=== PATIENT | male | born 1940 | race Caucasian/White ===

== ENCOUNTER 2018-07-13 10:54 | Inpatient (IN) | payer OTHER ==
[~2018-07-13] VITALS: Ht 188 cm; Wt 93.5 kg
--- NOTE | 2018-07-13 11:25 | NUR ---
PATIENT PRESENTS TO ED WITH C/O HEART PALPITATIONS AND DIZZINESS SINCE YESTERDAY AFTERNOON. STS HE TOOK SOME NICOTINE PRODUCT YESTERDAY AFTERNOON AND STARTED FEELING SYMPTOMS. STS HE WAS UNABLE TO TAKE BEYOND 10 STEPS BEFORE HE STARTED FEELING DIZZY. STS THAT HE WAS HAVING SOB. EARLIER YESTERDAY WELL. AWAITING MSE.
--- NOTE | 2018-07-13 11:44 | NUR ---
XRAY AT BEDSIDE
[2018-07-13 11:58] LABS: PLATELET COUNT 311 x10^3mcL (130-400)
[2018-07-13 12:06] LABS: RED CELL DISTRIBUTION WIDTH 18.2 % (11.5-14.5)
--- NOTE | 2018-07-13 12:09 | NUR ---
PROVIDED PATIENT WITH URINAL, PATIENT STS UNABLE TO URINATE AT THE MOMENT BUT WILL TRY AT A LATER TIME
[2018-07-13 12:13] LABS: CALCIUM 8.7 mg/dL (8.5-10.1); CARBON DIOXIDE 26.3 mmol/L (21-32); CHLORIDE SERUM 103 mmol/L (98-107); CREATININE SERUM 1.1 mg/dL (0.7-1.3); GLUCOSE SERUM 121 mg/dL (74-106); POTASSIUM SERUM 4.4 mmol/L (3.5-5.1); SODIUM SERUM 137 mmol/L (136-145)
[2018-07-13 12:19] LABS: ALKALINE PHOSPHATASE 59 U/L (46-116); ALT/SGPT 15 U/L (16-63); AST/SGOT 15 U/L (15-37); BILIRUBIN TOTAL 0.35 mg/dL (0.20-1.00)
[2018-07-13 12:20] LABS: ALBUMIN 3.1 g/dL (3.4-5.0)
[2018-07-13 12:28] LABS: FREE T4 0.93 ng/dL (0.76-1.46); FREE THYROXINE INDEX 2.1 ug/dL (1.4-4.5); T4(THYROXINE) 5.8 ug/dL (4.7-13.3)
--- NOTE | 2018-07-13 12:42 | NUR ---
PT RESTING AT BEDSIDE IN NAD
[2018-07-13 12:49] LABS: BAND NEUTROPHIL 6 % (0-10); BASOPHIL 0 % (0-2); MONOCYTE 24 % (0-7); SEGMENTED NEUTROPHILS 62 % (37-75)
[2018-07-13 12:50] LABS: T3 TOTAL 0.84 ng/mL
[2018-07-13 12:51] LABS: ovalocyte/elliptocyte 1+; rbc morphology (normal/abnorm) ABNORMAL (NORMAL)
[2018-07-13 12:52] LABS: PLATELET MORPHOLOGY GIANT PLATELET SEEN; tear drop cell (dacryocyte) 1+
[2018-07-13 13:05] LABS: AMPHETAMINE QUAL UR NONE DETECTED (See below)
[2018-07-13] MEDS ORDERED: HYD500 (13:07)
[2018-07-13] MEDS ORDERED: SIMVASTATIN10 M1 (13:07)
--- NOTE | 2018-07-13 14:11 | NUR ---
REPORT OFF TO ANTONIA ARBOLEDA
--- NOTE | 2018-07-13 14:20 | NUR ---
RECEIVED PT FROM ED VIA [facility], CAME IN DUE TO DIZZINESS AND PALPITATIONS THAT STARTED YESTERDAY AFTER TAKING 2 NICOTINE GUMS. AAOX4. C/O LIGHTHEADEDNESS WHEN AMBULATING. NO SOB NOTED, LUNG SOUNDS CTA. DENIES CHEST PAIN/PRESSURE, AFIB W/ OCC. PVC'S, HR AT 109 ON THE MONITOR. DENIES ABDOMINAL DISCOMFORT. BOWEL SOUNDS ACTIVE. VOIDS. IV SITE ON THE LAC IS PATENT AND INTACT. AT BEDSIDE. SIDE RAILS UPX2. CALL LIGHT ON REACH. WILL CONT TO MONITOR
[2018-07-13 14:28] VITALS: BP 129/74
--- NOTE | 2018-07-13 15:18 | NUR ---
CARE ENDORSED TO [place] FOR CONTINUITY OF CARE
--- NOTE | 2018-07-13 15:30 | NUR ---
ASSUMED PT. CARE RECIEVED AWAKE ,ALERT AND ORIENTED.DENIES ANY PAIN,NO DIZZINESS NOTED. AT THIS TIME.CONT,. IV FLUIDS ORDERED,CALL LIGHT W/ IN REACH. NO ACUTE DISTRESS NOTED.
[2018-07-13 17:45] VITALS: BP 126/52
--- NOTE | 2018-07-13 18:00 | NUR ---
PT. EAT DINNER WELL. C/O FEELING ANXIETY ,NERVOUS ,ATIVAN GIVEN ORDERED.MADE COMFORTABLE IN BED.CALL LIGHT W/ IN REACH.PUT ON 02 AT 2 L N/C .HOB ELEVATED AT 30 DEGREE.APPEARS MORE COMFORTABLE AT THIS TIME.
--- NOTE | 2018-07-13 19:40 | NUR ---
AOX4. TELE #25, A FIB. HR 130'S. DENIES CP/PALPITATIONS AT THIS TIME. LUNGS CLEAR ON NC @ 2L. PULSES PALPABLE. NO EDEMA. BOWEL SOUNDS ACTIVE. VOIDS FREELY. AMBULATORY. SKIN INTACT. IV INFUSING TO LAC, NO REDNESS/SWELLING. DENIES ALL OTHER PAIN. BED IN LOWEST POSITION, 2 SIDE RAILS UP, CALL LIGHT IN REACH. INSTRUCTED TO CALL FOR ASSISTANCE.
[2018-07-13 20:20] VITALS: BP 126/78
--- NOTE | 2018-07-13 21:44 | NUR ---
PT REPORTED 10/10 CHEST PAIN. ON NC @ 2L. DR. ZAMBRANO NOTIFIED AND CAME TO BEDSIDE TO ASSESS. STAT EKG ORDERED. ADMINISTERED SL NITRO X 3, PER EMAR. LATEST BP 111/64. HR 145. PT REPORTS 7/10 CHEST PAIN POST NITRO ADMINISTRATION. WILL CONTINUE TO MONITOR.
--- NOTE | 2018-07-14 00:18 | NUR ---
HR WAS 120-160'S. DR. ZAMBRANO NOTIFIED. ORDERED CARDIZEM IVP. TELE MONITORED NOTIFED. HR POST CARDIZEM IVP 90-110'S. PT RESTING COMFORTABLY IN BED. CURRENT CP 07/20.
--- NOTE | 2018-07-14 03:21 | NUR ---
PT C/O SOB AND CP, INCREASED NC TO 5L. HR CURRENTLY 140'S-150'S. DR. ZAMBRANO MADE AWARE. STATED HE WILL BE AT BEDSIDE TO ASSESS PT.
--- NOTE | 2018-07-14 04:49 | NUR ---
REPORT GIVEN TO DOMINICK KNIGHT. PT TO BE TRANSFERED TO ICU BED 3.
--- NOTE | 2018-07-14 04:50 | NUR ---
PT TRANSFERRED FROM [facility] UNIT ACCOMPANIED BY 2 RNS VIA [facility]. PT ABLE TO AMBULATE TO ICU BED WITH STEADY GAIT. PT IS A/0 X4. SPEECH CLEAR AND APPROPRIATE. PT WITH C/O 10/10 MID CHEST AREA PRESSURE-LIKE PAIN. WILL MEDICATE WITH NITRO PRN. VITAL SIGNS UPON ARRIVAL: TEMP 98.4 ORAL, HR 154, RR 12, O2 SAT 97%. NO SOB NOTED, RESPS E/U ON O2 4 LPM VIA NC. CHEST RISE EQUAL AND SYMMETRICAL. PROGRAMMER NUMERICAL CONTROL IN PLACE SHOWING A FIB. CHEST WALL STABLE. ABD FLAT, SOFT, NONTENDER TO TOUCH. IV TO LAC INTACT AND PATENT, IVF NS INFUSING @ 50ML/HR. PULSES PALPABLE X4. NO EDEMA NOTED. CAP REFILL < 3 SECS. ABLE TO REPOSITION SELF. CALL LIGHT WITHIN REACH. WILL CONTINUE TO MONITOR.
--- NOTE | 2018-07-14 05:00 | NUR ---
CASSIDY BYRD STATED THAT SHE TRIED CALLING THE PATIENT'S DAUGHTER REGARDING TRANSFER BUT UNABLE TO SPEAK TO HER, HOWEVER SHE GOT HOLD OF THE PATIENT'S SPOUSE AND SHE INFORMED HER ABOUT THE TRANSFER.
--- NOTE | 2018-07-14 05:00 | NUR ---
AMIO GTT INTIATED AT THIS TIME 1 MG/MIN.
--- NOTE | 2018-07-14 05:21 | NUR ---
NITRO SL X3 GIVEN, 5 MINS APART FOR C/O CHEST PAIN 10/10. PTS PAIN LEVEL WENT DOWN TO 5/10.
--- NOTE | 2018-07-14 05:27 | NUR ---
AMIO 150 MG BOLUS GIVEN AT THIS TIME.
--- NOTE | 2018-07-14 05:40 | NUR ---
AMIO GTT INITIATED AT 1 MG/MIN.
--- NOTE | 2018-07-14 05:55 | NUR ---
PT STATES PT WENT UP TO 09/19, MEDICATED WITH MORPHINE 2MG IVP, WILL MONITOR FOR EFFECTIVENESS.
--- NOTE | 2018-07-14 06:01 | NUR ---
IV INSERTED TO RFA G20 WITH GOOD BLOOD RETURN. FLUSHED WITH 10CC NS WITHOUT ANY INFILTRATION NOTED.
[2018-07-14 06:41] LABS: PLATELET COUNT 271 x10^3mcL (130-400)
[2018-07-14 07:02] LABS: CALCIUM 8.2 mg/dL (8.5-10.1); CARBON DIOXIDE 27.2 mmol/L (21-32); CHLORIDE SERUM 104 mmol/L (98-107); CREATININE SERUM 1.1 mg/dL (0.7-1.3); GLUCOSE SERUM 124 mg/dL (74-106); POTASSIUM SERUM 4.2 mmol/L (3.5-5.1); SODIUM SERUM 138 mmol/L (136-145)
[2018-07-14 07:20] VITALS: BP 131/77
--- NOTE | 2018-07-14 07:20 | NUR ---
PT C/O 10 CP, NONRADIATING, PRESSURE LIKE, NOT ALLEVIATED BY ANYTHING, AGGRAVATED BY DEEP BREATHING AND WORSENS UPON DEEP INSPIRATION. STATES PAIN IS CONSTANT. PAIN MOVES FROM SUBSTERNAL TO RIGHT CHEST. NO SOB. NO N/V. O2 SAT 98% ON 4L NC. RECEIVED MORPHINE THIS AM AND NITRO. PT STATES ANXIETY. WILL MEDICATE PER EMAR
[2018-07-14 07:55] LABS: RED CELL DISTRIBUTION WIDTH 18.8 % (11.5-14.5)
[2018-07-14 08:32] LABS: BAND NEUTROPHIL 7 % (0-10); MONOCYTE 36 % (0-7); SEGMENTED NEUTROPHILS 48 % (37-75)
[2018-07-14 08:33] LABS: PLATELET MORPHOLOGY PLATELETS NORMAL; ovalocyte/elliptocyte 1+; rbc morphology (normal/abnorm) ABNORMAL (NORMAL); schistocyte (helmet cell) 1+; tear drop cell (dacryocyte) 1+
--- NOTE | 2018-07-14 09:10 | NUR ---
98% ON 4L NC. PT HAS INCREASED AP DIAMETER. O2 TITRATED TO 2L AND PT SATTING 95%. DENIES SOB.
--- NOTE | 2018-07-14 09:53 | NUR ---
SPOKE WITH PT'S DAUGHTER, CYNDI, AND UPDATED ON PT'S STATUS AND CONDITION. ALL QUESTIONS ADDRESSED.
--- NOTE | 2018-07-14 10:00 | NUR ---
PT C/O 5/10 CHEST PAIN. SIMILAR TO PREVIOUS. TIFFANI CONCRETE FINISHER AWARE. WILL MEDICATE PER EMAR
--- NOTE | 2018-07-14 10:09 | NUR ---
PT NOTED TO HAVE NC OUT OF NOSE. O2 SAT 91% ON RA. NO COMPLAINTS OF SOB. WILL CONTINUE TO MONITOR.
[2018-07-14 10:21] LABS: CHOLESTEROL/HDL RATIO 4.3
--- NOTE | 2018-07-14 10:24 | NUR ---
O2 SAT 85%. O2 PLACED @ 3L NC. O2 SAT NOW 93%. WILL CONTINUE TO MONITOR.
[2018-07-14 11:05] VITALS: BP 121/75
--- NOTE | 2018-07-14 11:25 | NUR ---
CARDIAC RHYTHM CONVERTED FROM ATRIAL FIBRILLATION TO NSR HR 70S AT THIS TIME.
--- NOTE | 2018-07-14 11:35 | NUR ---
PT DIAPHORETIC. TEMP 97.9. SPOT CHECK BS 121. NO COMPLAINTS OF CP OR SOB. NO DIZZINESS, N/V/D. WILL CONTINUE TO MONITOR
--- NOTE | 2018-07-14 11:40 | NUR ---
AMIODARONE GTT TITRATED FROM 1 MG/MIN TO 0.5 MG/MIN. WILL CONTINUE TO MONITOR
--- NOTE | 2018-07-14 12:36 | NUR ---
PT WITH BACK PAIN, MOVED FROM BED TO RECLINER CHAIR AND PILLOW PLACED TO ALLEVIATE PRESSURE. TIFFANI BILLBOARD INSTALLER MADE AWARE AND STATES SHE WILL INPUT ORDERS.
--- NOTE | 2018-07-14 12:45 | NUR ---
PT RETURNED FROM RECLINING CHAIR TO BED. STATES BED IS MORE COMFORTABLE FOR PAIN.
--- NOTE | 2018-07-14 14:59 | NUR ---
PT RECEIVED BREATHING TREATMENT AT THIS TIME. STATES IT HELPED WITH THE CHEST PAIN AND MADE IT FEEL EASIER TO BREATHE. PT RESTING COMFORTABLY IN BED.
[2018-07-14 15:02] VITALS: BP 121/75
[2018-07-14 15:17] VITALS: BP 124/73
--- NOTE | 2018-07-14 15:40 | NUR ---
DR. SOSA AT BEDSIDE SPEAKING WITH PATIENT, DAUGHTER, AND . INFORMED OF PT'S CHEST PAIN OCCURING THROUGHOUT THE DAY AND INTERVENTIONS WITHOUT RELIEF. DR. SOSA STATES HE WILL INPUT ORDERS FOR CARDIAC STRESS TEST. AMIODARONE GTT TO BE DISCONTINUED ONCE 24 HOURS IS COMPLETE AND THEN WE WILL BE STARTED ON PO AMIODARONE. ALL PARTIES IN AGREEMENT WITH PLAN OF CARE AND ALL QUESTIONS ADDRESSED BY DR. SOSA AT THIS TIME.
--- NOTE | 2018-07-14 16:00 | NUR ---
PT STATES 10/10 BACK PAIN. HEATING PAD TO BACK, REPOSITIONING ATTEMPTED, PRESSURE POINTS OFFLOADED AND HOME MEDS GIVEN WITH NO RELIEF. STATES MILD CP HAS BEGUN WELL. WILL MEDICATE PER EMAR FOR SEVERE PAIN.
--- NOTE | 2018-07-14 18:55 | NUR ---
ENTERED TO ASK PT IF CP HAS RESOLVED. PT RESTING WITH EYES CLOSED IN POSITION OF COMFORT. NO S/SX OF ACUTE DISTRESS AT THIS TIME.
--- NOTE | 2018-07-14 19:05 | NUR ---
PT SATURATING 90% WITH 3L NC NOTED ON PT. TITRATED NC TO 4L AT THIS TIME, PT SATURATING NOW @ 94%, CHEST RISE/FALL SYMMETRIC, E/U BREATHING.
[2018-07-14 19:10] VITALS: BP 122/65
--- NOTE | 2018-07-14 19:10 | NUR ---
RECEIVED PT AOX4 ABLE TO RESPOND TO COMMANDS AND MAKE NEEDS KNOWN, SPEECH CLEAR, GCS=15, PUPILS 4MM BRISK RESPONSE TO LIGHT B/L, PERRLA. NO REPORTED RUIZ, NO FACIAL DROOP.TRACHEA MIDLINE, NO DRAINAGE TO EENT, NO EENT COMPLAINTS.4L NC INTACT. LUNG SOUNDS CRACKLES BUL, DIMINISHED BASES. CHEST RISE/FALL SYMMETRIC, E/U BREATHING, NO ACUTE RESP DISTRESS, DENIES SOB.S1/S2 SOUNDS HEARD, CHEST WALL STABLE, NO S/S OR REPORT OF CHEST PAIN WHEN ASKED. AMIODARONE GTT INFUSING @ 0.5 MG/MIN.SKIN COLOR CONSISTENT WITH ETHNICITY, CAP REFILL <3 SECONDS X4, PULSES MODERATE X4, NO EDEMA. NS INFUSING @ 50 ML/HR.GEN WEAKNESS. ROM ACTIVE. NO CONTRACTURES/DEFORMITIES, PT ABLE TO TURN /REPOSITION SELF Q2H. NO JOINT SWELLING/TENDERNESS. CCHO DIET. NO S/S OF N/V.ACTIVE BOWEL SOUNDS X4 QUADRANTS, ABD SOFT/ROUND. NO BM NOTED. NO GI COMPLAINTS WHEN ASKED.PT ABLE TO VOID WITH BEDSIDE URINAL, MAXIMILIAN CLEAR URINE. NO PENILE EDEMA/DISCHARGE NOTED.SKIN INTACT, WARM/DRY TO TOUCH. IV TO LAC, RFA, PORTS PATENT, NO S/S OF INFILTRATION, DRESSING CDI. PT REPORTS BACK PAIN 3/10 BUT TOLERABLE WHEN ASKED, HEATING PAD NOTED TO BACK AT THIS TIME. FAMILY UPDATED AND CYNDI DAUGHTER AT BEDSIDE ON POC AND ALL QUESTIONS AND CONCERNS ADDRESSED, NO FURTHER QUESTIONS. WILL CONT TO MONITOR.
--- NOTE | 2018-07-14 19:58 | NUR ---
RT WRIGHT AT BEDSIDE FOR BREATHING TREATMENT.
--- NOTE | 2018-07-14 20:19 | NUR ---
PT REPORTING 7/10 SHARP BACK PAIN AT THIS TIME, WILL MEDICATE MORPHINE PER EMAR.
[2018-07-14 23:05] VITALS: BP 109/59
--- NOTE | 2018-07-15 00:38 | NUR ---
PT FOUND TO HAVE NC OUT OF NOSE. O2 SAT 90% ON RA. NO COMPLAINTS OF SOB OR SIGNS OF RESP DISTRESS. PLACED NC BACK ON PT, PT NOW SATURATING AT 93%-94%. PT SLEEPING BUT EASILY AROUSABLE. WILL CONTINUE TO MONITOR.
--- NOTE | 2018-07-15 01:52 | NUR ---
PT REPORTING MILD CHEST PAIN AT THIS TIME 3/10 NONRADIATING, SUBSTERNAL CHEST PAIN. PT DENIES SOB AT THIS TIME ON 4L NC SATURATING AT 93%. WILL MEDICATE NITROSTAT PER EMAR.
--- NOTE | 2018-07-15 01:59 | NUR ---
NITROSTAT SL 0.4MG X1 GIVEN PER EMAR. PT REPORTS RELIEF IN CHEST PAIN AT THIS TIME. EDUCATED PT ON INFORMING NURSING STAFF ON CHEST PAIN. WILL CONTINUE TO MONITOR.
[2018-07-15 03:10] VITALS: BP 123/58
--- NOTE | 2018-07-15 03:19 | NUR ---
PT REPORTS BEING ANXIOUS AT THIS TIME, WILL MEDICATE WITH ATIVAN IVP PER EMAR.
[2018-07-15 05:06] LABS: PLATELET COUNT 244 x10^3mcL (130-400)
[2018-07-15 05:22] LABS: RED CELL DISTRIBUTION WIDTH 18.3 % (11.5-14.5)
[2018-07-15 05:26] LABS: CALCIUM 8.2 mg/dL (8.5-10.1); CARBON DIOXIDE 21.6 mmol/L (21-32); CHLORIDE SERUM 101 mmol/L (98-107); CREATININE SERUM 1.3 mg/dL (0.7-1.3); GLUCOSE SERUM 124 mg/dL (74-106); POTASSIUM SERUM 4.4 mmol/L (3.5-5.1); SODIUM SERUM 133 mmol/L (136-145)
[2018-07-15 05:30] LABS: BAND NEUTROPHIL 2 % (0-10); MONOCYTE 32 % (0-7); SEGMENTED NEUTROPHILS 60 % (37-75)
[2018-07-15 05:32] LABS: rbc morphology (normal/abnorm) ABNORMAL (NORMAL)
[2018-07-15 05:33] LABS: PLATELET MORPHOLOGY PLATELETS NORMAL; ovalocyte/elliptocyte 1+
--- NOTE | 2018-07-15 05:39 | NUR ---
PT SATURATING @ 88%. PT DENIES ANY SOB, NO ACUTE RESP DISTRESS, CHEST RISE/FALL SYMMETRIC. PAGED RT ADRIANA TO ADMINISTER BREATHING TREATMENT.
--- NOTE | 2018-07-15 05:40 | NUR ---
AMIODARONE GTT TITRATED OFF AT THIS TIME PER DR. SOSA'S ORDER TO D/C AFTER 24 HOURS.
--- NOTE | 2018-07-15 05:40 | NUR ---
RT WRIGHT AT BEDSIDE FOR BREATHING TREATMENT.
--- NOTE | 2018-07-15 05:45 | NUR ---
RT WRIGHT AT BEDSIDE TO PLACE PATIENT ON 6L OXYMIZER. PT SATURATING @ 93%.
--- NOTE | 2018-07-15 07:10 | NUR ---
GAVE REPORT TO DIDI KNIGHT, UPDATES GIVEN, QUESTIONS ANSWERED.
[2018-07-15 07:47] VITALS: Ht 188 cm; Wt 93.5 kg
[2018-07-15 08:00] VITALS: BP 140/70
--- NOTE | 2018-07-15 08:00 | NUR ---
RECIEVED PT. AWAKE,ALERT AND ORIENTED,DENIES CHEST PAIN NO PALPITATION NOTED,NO ACUTE RESP. DISTRESS NOTED ,CONT ON 02 OXYMIZER AT 6L STEPHIE. WELL. CONT .IV FLUIDS ORDERED.C/O SLIGHT BACK PAIN PT.REQUESTED COOL PACK ,REFUSED HOT PACK IN HIS BACK. REPOSTIONED PT. AND MADE COMFORTABLE IN BED. CALL LIGHT W/ IN REACH. WILL CONT. TO MONITOR PT. WILL CONT. PLAN OF CARE.
--- NOTE | 2018-07-15 08:20 | NUR ---
DECREASED FLOW ON OXYMIZER FROM 6 L/MIN TO 4 L/MIN.
--- NOTE | 2018-07-15 08:30 | NUR ---
TIFFANI, EXPLOSIVES TRUCK DRIVER AT BEDSIDE TO ASSESS PATIENT. UPDATES PROVIDED AND POC DISCUSSED.
--- NOTE | 2018-07-15 09:36 | NUR ---
SPOKE TO HARDIK FROM RADIOLOGY PRIOR TO PATIENT GOING TO CT ANGIO. UPDATES PROVIDED. WILL PICK PATIENT UP AT 1000 FOR TEST. ANTONIA PETERS MADE AWARE.
--- NOTE | 2018-07-15 10:15 | NUR ---
PT. WENT TO CT ANGIO PER W/C ACC. NURSE ACCOMPANIED PT. TO CT ANGIO W/ PT. DAUGHTER.
--- NOTE | 2018-07-15 10:45 | NUR ---
PT. BACK TO CT. ANGIO STEPHIE. WELL.DENEIS ANY CHEST PAIN.NO ACUTE DISTRESS NOTED.
[2018-07-15 12:00] VITALS: BP 140/56
--- NOTE | 2018-07-15 12:00 | NUR ---
PT. SLEEPING COMFORTABLE IN BED. NO ACUTE RESP. DISTRESS NOTED. CONT. OXYMIZER TO 4L.DENIES SOB AT THIS TIME.
--- NOTE | 2018-07-15 15:00 | NUR ---
PATIENT'S O2 SATURATION IS 86% ON 4L NASAL OXIMIZER. LPM TITRATED UP TO 6L AT THIS TIME. ANTONIA PETERS MADE AWARE.
[2018-07-15 16:00] VITALS: BP 144/65
--- NOTE | 2018-07-15 16:00 | NUR ---
PT. RESTING COMFORTABLE IN BED.DENIESS CHEST PAIN .NO ACUTE RESP. DISTRESS NOTED. CONT. OXZYMIZER TO 6 L STEPHIE. WELL W/ 02 SAT 92%.CALL LIGHT W/ IN REACH WILL CONT. TO MONITOR.
--- NOTE | 2018-07-15 17:30 | NUR ---
DR. ESPINO HERE AND SEEN THE PT. W/ NEW ORDERS MADE OD IV ANTIBIOTIC AND PT. OK TO BE TRANSFERED TO SECOND FLOOR TEL. PT. MADE AWARE.DR. STOCKTON SPOOKED TO PT. DAUGHTER REGARDING PT. CONDITION .REPORT GIVEN TO ANTONIA LINDA PT. IS GOING TO ROOM 219 A. PT/DAUGHTER MADE AWARE.
--- NOTE | 2018-07-15 17:56 | NUR ---
PT. APPEARS ANXIOUS /RESTLESS AND C/O SOB AND CHEST PAIN MEICATED W/ NTG SL X1 AND ATIVEN 1 MG IVP ORDERED .MADE COMFORTABLE IN BED. V/S STABLE. WILL CONT. TO MONITOR PT.
--- NOTE | 2018-07-15 18:45 | NUR ---
PT. RESTING IN BED AT THIS TIME. DENIES ANY PAIN STARTED ON IV ANTIBIOTIC ORDERED ZOSYN.WILL TRANSFER PT. TO TEL FLOOR WILL ENDORSE TO INCOMING NURSE RN 7P -7A.
[2018-07-15 19:10] VITALS: BP 133/58
--- NOTE | 2018-07-15 19:10 | NUR ---
RECEIVED PT AOX4 ABLE TO RESPOND TO COMMANDS AND MAKE NEEDS KNOWN, SPEECH CLEAR, GCS=15, PUPILS 4MM BRISK RESPONSE TO LIGHT B/L, PERRLA. NO REPORTED RUIZ, NO FACIAL DROOP. PT RESTING WITH EYES CLOSED BUT AROUSABLE TO VERBAL AND TACTILE STIMULI.TRACHEA MIDLINE, NO DRAINAGE TO EENT, NO EENT COMPLAINTS.6L OXYMIZER, LUNG SOUNDS WHEEZES BUL, DIMINISHED BASES. CHEST RISE/FALL SYMMETRIC, E/U BREATHING, NO ACUTE RESP DISTRESS, DENIES SOB.S1/S2 SOUNDS HEARD, CHEST WALL STABLE, NO S/S OR REPORT OF CHEST PAIN WHEN ASKED.SKIN COLOR CONSISTENT WITH ETHNICITY, CAP REFILL <3 SECONDS X4, PULSES MODERATE X4, NO EDEMA. NS INFUSING @ 50 ML/HR.GEN WEAKNESS. ROM ACTIVE. NO CONTRACTURES/DEFORMITIES, PT ABLE TO TURN AND REPOSITION SELF Q2H. NO JOINT SWELLING/TENDERNESS.NO S/S OF N/V. ACTIVE BOWEL SOUNDS X4 QUADRANTS, ABD SOFT/ROUND. NO BM NOTED. NO GI COMPLAINTS WHEN ASKED.PT ABLE TO VOID WITH BEDSIDE URINAL, MAXIMILIAN CLEAR URINE. NO PENILE EDEMA/DISCHARGE NOTED.SKIN INTACT, WARM/DRY TO TOUCH. IV TO LAC, RFA, PORTS PATENT, NO S/S OF INFILTRATION, DRESSING CDI. FAMILY AND PT UPDATED ON POC, DISEASE PROCESS AND ICENTIVE SPIROMETRY USE.
--- NOTE | 2018-07-15 19:15 | NUR ---
GAVE REPORT TO DELORES KNIGHT UPDATE GIVEN AND ALL QUESTION ANSWERED.
--- NOTE | 2018-07-15 20:10 | NUR ---
PT SATURATING 79% AT THIS TIME WITH ADEQUATE WAVE FORM ON MONITOR. FOUND PT WITH OXYMIZER OFF AT THIS TIME ON ROOM AIR, PLACED PT BACK ON OXYMIZER AND INSTRUCTED PT TO KEEP OXYMIZER NASAL CANNULA ON FOR ADEQUATE OXYGENATION. INSTRUCTED PT TO USE INCENTIVE SPIROMETRY. PT VERBALIZES UNDERSTANDING.
--- NOTE | 2018-07-15 20:35 | NUR ---
DEPUTY ESCOTO TUBE MOLDER [employer]ERGLASS CALLED UNIT, UPDATED HER ON EVENTS ON PT'S HOSPITAL STAY. DEPUTY ESCOTO REQUESTING TO SPEAK WITH DEPUTY VICENTE AT BEDSIDE, HANDED PHONE OVER. PER AT BEDSIDE SHE WILL CALL JEREMIAS AT [facility] AND CALL UNIT BACK. WILL AWAIT CALL BACK.
--- NOTE | 2018-07-15 23:03 | NUR ---
PT DESATURATED TO 86% AT THIS TIME. OXYMIZER TITRATED TO 7L, PT NOW SATURATING AT 93%. PT DENIES ANY SOB OR CHEST PAIN AT THIS TIME WHEN ASKED. RT LASHANDA AT BEDSIDE.
[2018-07-15 23:08] VITALS: BP 111/62
--- NOTE | 2018-07-16 01:00 | NUR ---
RT PYLE AT BEDSIDE TO ADMINISTER BREATHING TREATMENT AND TITRATE OXYMIZER TO 6LPM
[2018-07-16 03:55] VITALS: BP 118/62
--- NOTE | 2018-07-16 05:05 | NUR ---
PT REPORTING "IM HAVING AN ANXIETY ATTACK" RT LASHANDA AT BEDSIDE TO TITRATE PT TO 7LPM OXYMIZER. PT RESPIRATORY RATE 28-30'S. PT SATURATING @ 90%. WILL ADMINISTER ATIVAN PER EMAR.
[2018-07-16 05:41] LABS: CALCIUM 8.1 mg/dL (8.5-10.1); CARBON DIOXIDE 24.7 mmol/L (21-32); CHLORIDE SERUM 102 mmol/L (98-107); CREATININE SERUM 1.3 mg/dL (0.7-1.3); GLUCOSE SERUM 108 mg/dL (74-106); PLATELET COUNT 213 x10^3mcL (130-400); POTASSIUM SERUM 4.4 mmol/L (3.5-5.1); RED CELL DISTRIBUTION WIDTH 18.6 % (11.5-14.5); SODIUM SERUM 135 mmol/L (136-145)
[2018-07-16 05:49] LABS: BAND NEUTROPHIL 2 % (0-10); MONOCYTE 31 % (0-7); SEGMENTED NEUTROPHILS 59 % (37-75); rbc morphology (normal/abnorm) ABNORMAL (NORMAL)
[2018-07-16 05:50] LABS: PLATELET MORPHOLOGY PLATELETS NORMAL; ovalocyte/elliptocyte 1+
--- NOTE | 2018-07-16 07:09 | NUR ---
GAVE REPORT TO ANTONIA ANAYA. UPDATES GIVEN, QUESTIONS ANSWERED.
--- NOTE | 2018-07-16 08:03 | NUR ---
AT BEDSIDE, PER START LASIX, SOLUMEDROL AND CANCEL TRANSFER ORDERS FOR NOW. START PT ON HIGH FLOW.
[2018-07-16 08:35] VITALS: BP 132/65
--- NOTE | 2018-07-16 08:50 | NUR ---
DR. STOCKTON SAW PT AND ORDERED TO CHANGE PT TO HIGH FLOW O2 WITH FIO2 50%. O2 SAT 92%.
--- NOTE | 2018-07-16 09:16 | NUR ---
ELOISA REST/STRESS ORDERED FOR TODAY. CHANGE IN PATIENT'S CONDITION, NOW ON HIGH-FLOW O2 WITH SPO2 REMAINING LOW 90%S. CALL PLACED TO DR SOSA TO UPDATE HIM, AWAITING RETURN CALL.
--- NOTE | 2018-07-16 09:28 | NUR ---
SPOKE WITH DR SOSA, NOTIFIED R/T PATIENT NOW ON HIGH FLOW 02, PER DR SOSA CANCEL THE STRESS TEST FOR TODAY. NOTIFIED PATIENT'S NURSE HÉCTOR.
--- NOTE | 2018-07-16 09:48 | NUR ---
REPORT GIVEN TO [place] NURSE DENSON. SHE TALKED TO EXEC. CREATIVE DIRECTOR DR. SOSA. PT'S SECHEDULED IS CANCELED BY DR. SOSA.
--- NOTE | 2018-07-16 09:49 | NUR ---
CANCELLATION REQUESTED FOR ELOISA
--- NOTE | 2018-07-16 10:55 | NUR ---
ASSIST PT SITTING ON CHAIR. RT DECREASE HIGH FLOW FIO2 FROM 50% TO 45%. PT URINATED, LIGHT YELLOW URINE, 500ML.
[2018-07-16 12:45] VITALS: BP 126/64
[2018-07-16 16:10] VITALS: BP 118/57
--- NOTE | 2018-07-16 16:29 | NUR ---
ASSISTED PT TO SIT ON CHAIR. PT'S O2 SAT 94%, ENCOURAGE PT TO USE I.S. 1250.
--- NOTE | 2018-07-16 19:07 | NUR ---
RECEIVED REPORT FROM HÉCTOR KNIGHT. WILL CONTINUE CARE AND TREATMENT PLAN.
--- NOTE | 2018-07-16 19:10 | NUR ---
PT'S REPORT GIVEN TO RECEIVING NURSE. QUESTIONS AND CONCERN ANSWER. PT'S AT BED SIDE. PT IS AWAKE, DENIED SOB. PT BREATHING ON HIGH FLOW FIO2 40%, O2 SAT 92%. DENIED CHEST PAIN, HR 85 BPM. NO DISTRESSED AT THIS TIME.
[2018-07-16 19:16] VITALS: BP 121/60
--- NOTE | 2018-07-16 19:24 | NUR ---
RECEIVED PT AAOX4, SPEECH CLEAR. BREATHING EVEN AND UNLABORED. LUNG SOUNDS CLEAR TO UPPER LOBES AND DIMINISHED TO BILATERAL BASES. PT IS ON HIFLOW WITH FIO2 40%, O2SAT 92%. NO DISCHARGE, DRAINAGE, OR SWELLING NOTED TO EENT. PULSES MODERATE TO BUE AND BLE. S1S2 AUSCULTATED, WITH NO MURMERS NOTED, HR 86. PT HAS IV FLUIDS OF NS RUNNNING @50ML/HR TO R FOREARM 20G, NO SIGNS OF INFILTRATION OR PHLEBITIS NOTED. PT ALSO HAS L AC SALINE LOCK, PATENT AND INTACT. ABDOMEN SOFT, FLAT, NONTENDER. BS ACTIVE X 4. NO N/V NOTED. PT HAS GENERALIZED WEAKNESS BUT ABLE TO TURN AND REPOSITION SELF. SKIN CDI. BED IN LOW POSIITION. CALL LIGHT WITHIN REACH. AT BEDSIDE. WILL CONTINUE TO MONITOR.
--- NOTE | 2018-07-16 19:40 | NUR ---
RT AT BEDSIDE ASSESSING PT AND GIVING BREATHING TX. PT TOLERATING WELL.
[2018-07-16 23:42] VITALS: BP 119/67
[2018-07-17 03:51] VITALS: BP 11/67
--- NOTE | 2018-07-17 04:52 | NUR ---
SIGN LANGUAGE TEACHER AT BEDSIDE FOR BLOOD DRAW.
--- NOTE | 2018-07-17 05:24 | NUR ---
PT C/O COUGH AND REQUESTED COUGH MEDICATION. DR. FLETCHER MADE AWARE, AWAITING ORDER.
--- NOTE | 2018-07-17 05:42 | NUR ---
PT GIVEN PRN ROBITUSSIN W/CODEINE 5ML FOR C/O COUGH. WILL CONTINUE TO MONITOR.
[2018-07-17 05:50] LABS: CALCIUM 8.1 mg/dL (8.5-10.1); CARBON DIOXIDE 24.4 mmol/L (21-32); CHLORIDE SERUM 102 mmol/L (98-107); CREATININE SERUM 1.4 mg/dL (0.7-1.3); GLUCOSE SERUM 145 mg/dL (74-106); POTASSIUM SERUM 3.9 mmol/L (3.5-5.1); SODIUM SERUM 136 mmol/L (136-145)
[2018-07-17 05:58] LABS: BASOPHIL % 0.4 % (0-2); PLATELET COUNT 301 x10^3mcL (130-400); RED CELL DISTRIBUTION WIDTH 18.8 % (11.5-14.5)
--- NOTE | 2018-07-17 06:48 | NUR ---
DR. QUESADA AT BEDSIDE ASSESSING PT. UPDATES PROVIDED. NO NEW ORDERS AT THIS TIME.
--- NOTE | 2018-07-17 07:18 | NUR ---
GAVE REPORT TO MICHAEL KNIGHT. ALL QUESTIONS AND CONCERNS ADDRESSED.
[2018-07-17 07:25] VITALS: BP 120/62
--- NOTE | 2018-07-17 07:25 | NUR ---
PATIENT ORIENTED TO PERSON, PLACE AND TIME. THE PATIENT DENIED SHORTNESS OF BREATH, NAUSEA/VOMITING OR PAIN AT THIS TIME. PATIENT WAS ON HIGH FLOW AT 40% AND 25LPM. TELE # 3 READS SINUS RHYTHMS. IVF NS VIA IV SITE AT [facility]. ANOTHER IV SITE AT [facility]. CALL LIGHT WITHIN REACH. SIDE RAILS UP X3. BED WAS AT LOWEST POSITION. ALARM WAS ON.
--- NOTE | 2018-07-17 08:34 | NUR ---
RT KAUR TITRATED THE HIGH FLOW FIO2 FROM 40% DOWN TO 35%.
--- NOTE | 2018-07-17 09:15 | NUR ---
DR. STOCKTON IN TO SEE THE PATIENT AND AWARE OF THE CHEST XR RESULT THIS MORNING.
--- NOTE | 2018-07-17 09:20 | NUR ---
DR. BELLO AND THE TEAM WERE MAKING ROUND TO SEE THE PATIENT.
--- NOTE | 2018-07-17 10:15 | NUR ---
RT KAUR TITRATED HIGH FLOW FIO2 FROM 35% DOWN TO 30%.
[2018-07-17 11:46] VITALS: BP 128/54
--- NOTE | 2018-07-17 12:00 | NUR ---
PT WAS AT BEDSIDE FOR PT TREATMENT.
--- NOTE | 2018-07-17 12:20 | NUR ---
RT KAUR ADJUSTED HIGH FLOW OXYGEN FROM 25LPM DOWN TO 20LPM.
[2018-07-17 14:14] VITALS: BP 128/54
--- NOTE | 2018-07-17 15:16 | NUR ---
DR. SOSA IN TO SEE THE PATIENT.
--- NOTE | 2018-07-17 16:16 | NUR ---
REPORT WAS GIVEN TO ANTONIA QUIÑONEZ ON [facility] UNIT. CONCERNS WERE ADDRESSED. THE PATIENT WILL BE TRANSFERRED TO ROOM 205A [facility] UNIT AFTER BREATHING TREATMENT.
--- NOTE | 2018-07-17 16:30 | NUR ---
THE PATIENT WAS TRANSFERRED UP TO ROOM 205A OF [facility] UNIT, AND ACCOMPANIED BY HIS AND DAUGHTER. ALL BELONGINGS WERE TRANSFERRED WITH THE PATIENT.
[2018-07-17 16:40] VITALS: BP 127/52
--- NOTE | 2018-07-17 16:40 | NUR ---
RECEIVED PATEINT FROM ICU. PATIENT A/A/OX4. CLEAR SPEECH. TELE#30 APPLIED. SR; HR = 82. V/A 98.5-82-20-127/52, MAP 77. O2 SAT 92% ON HIGH FLOW 20 LPM/30% O2 SAT. IVF OF NS 50CC/HR TO RFA, SITE CLEAN. IVHL'D TO LAC. ABLE TO MOVE ALL EXTREMITIES. SKIN INTACT. DENIED PAIN. VOID VIA URINAL. AT BED SIDE. CALL LIGHT IN REACH.
--- NOTE | 2018-07-17 19:32 | NUR ---
RECEIVED PATIENT IN BED AWAKE, ALERT AND ORIENTED WITH NO SIGN OF ACUTE RES[PIRATORY DISTRESS. BREATHING EASYA ND NONLABOR ON HIGHFLOW O2 AT 20L/HR F102 0F 30%. TELE#30 NSR ON MONITOR, DENIES CHESTPAIN. IV TO RFA INTACT AND INFUSINGW ELL WITH HEPLOCK IV TO LAC. WILL CONTINUE TO MONITOR. CALL LIGHT WITHIN REACH.
[2018-07-17 20:58] VITALS: BP 117/51
--- NOTE | 2018-07-18 00:28 | NUR ---
APPEARS SLEEPING THIS TIME WITH EYES CLOSED WITH NO SIGN OF DISTRESS. BREATHING EASY AND NONLABOR.
--- NOTE | 2018-07-18 05:05 | NUR ---
SLEPT FAIRLY, CHECKED AT INTERVALS FOR NEEDS AND SAFETY. ALL NEEDS ATTENDED.
[2018-07-18 05:48] VITALS: BP 127/54
--- NOTE | 2018-07-18 07:58 | NUR ---
RECEIVED PATIENT FROM ANTONIA STACY. PATIENT IN BED AT THIS TIME. NO COMPLAINTS OF PAIN OR SOB. CALL LIGHT IN REACH AT THIS TIME.
[2018-07-18 08:39] LABS: CALCIUM 8.4 mg/dL (8.5-10.1); CARBON DIOXIDE 24.8 mmol/L (21-32); CHLORIDE SERUM 105 mmol/L (98-107); CREATININE SERUM 1.5 mg/dL (0.7-1.3); GLUCOSE SERUM 138 mg/dL (74-106); POTASSIUM SERUM 4.2 mmol/L (3.5-5.1); SODIUM SERUM 139 mmol/L (136-145)
[2018-07-18 09:01] LABS: BASOPHIL % 0 % (0-2); PLATELET COUNT 267 x10^3mcL (130-400); RED CELL DISTRIBUTION WIDTH 19.5 % (11.5-14.5)
[2018-07-18 09:49] VITALS: BP 108/68
--- NOTE | 2018-07-18 10:41 | NUR ---
PATIENT UP TO CHAIR W PT NEVA. TOLERATED. EXPLAINED TO PATIENT USE OF BLOOD THINNER FOR HX OF A FIB. CALL LIGHT IN REACH, FAMILY AT BEDSIDE.
--- NOTE | 2018-07-18 12:53 | NUR ---
DR STOCKTON & AASHISH REP IN TO SPEAK WITH PATIENT ABOUT PLAN OF CARE. FAMILY AT BEDSIDE. ALL QUESTIONS ANSWERED & ADDRESSED. CALL LIGHT IN REACH.
[2018-07-18 13:01] VITALS: BP 120/45
--- NOTE | 2018-07-18 14:48 | NUR ---
PATIENT & FAMILY INFORMED THAT PATIENT WILL BE TRANSFERRED TO [facility]. STILL AWAITING CONFIRMATION FROM PROJECT MANAGER SENIOR CARLOS LANDIN. NO COMPLAINTS FROM PATIENT AT THIS TIME.
[2018-07-18] MEDS ORDERED: IPRATROPIUM BROM3 M2 INH ×2 (15:17)
[2018-07-18] MEDS ORDERED: LIPI20 PO (15:18)
[2018-07-18] MEDS ORDERED: NIT0.4 SL (15:18)
[2018-07-18] MEDS ORDERED: FER300 PO (15:18)
[2018-07-18] MEDS ORDERED: COR200 PO (15:18)
[2018-07-18] MEDS ORDERED: ELIQUIS5 MG PO (15:18)
[2018-07-18] MEDS ORDERED: METOPROLOL TART25 M1 PO (15:19)
[2018-07-18] MEDS ORDERED: SOL40I IV (15:19)
[2018-07-18 15:34] VITALS: BP 120/45
[2018-07-18 16:51] VITALS: BP 114/53
--- NOTE | 2018-07-18 17:38 | NUR ---
PLACED PT ON 6L OXYMIZER AT THIS TIME, SPO2 LEVEL AT 98%. WILL MONITOR.
--- NOTE | 2018-07-18 18:07 | NUR ---
GIVE PATIENT REPORT TO ANTONIA RODNEY AT [facility]. WILL AWAIT FOR TRANSPORT.
--- NOTE | 2018-07-18 19:02 | NUR ---
PATIENT RESTING IN BED, NO SIGNS OF SOB OR DISTRESS. AWAITING TRANSPORT FOR PATIENT TRANSFER. WILL ENDORSE TO ONCOMING NURSE. CALL LIGHT IN REACH, FAMILY AT BEDSIDE.
--- NOTE | 2018-07-18 19:09 | NUR ---
PT RECEIVED A/O X4, ABLE TO MAKE NEEDS KNOWN. FAMILY AT BEDSIDE. TELE #30, DENIES CP/PRESSURE. PULSES PALPABLE, NO EDEMA PRESENT. BREATHING IS EVEN AND UNLABORED ON 6L OXYMIZER, PT DENIES SOB, NO RESP DISTRESS NOTED, 02 SAT-96%. ABD SOFT AND NONDISTENDED, DENIES N/V. VOIDS FREELY, BRP. GENERALIZED WEAKNESS. SKIN IS WARM AND DRY, INTACT. PT DENIES ANY PAIN AT THIS TIME. SL TO RFA, PATENT AND INTACT, SITE FREE FROM REDNESS OR SWELLING. PT AWAITING [facility] TRANSPORT TO [facility], REPORT WAS GIVEN BY AM NURSE. BED IN LOWEST SETTING, SIDE RAILS UP X2, CALL LIGHT WITHIN REACH. WILL CONT TO MONITOR.
--- NOTE | 2018-07-18 19:35 | NUR ---
[facility] TEAM ARRIVED. REPORT GIVEN TO [facility], ALL QUESTIONS AND CONCERNS ADDRESS. PT IN NO ACUTE DISTRESS. WILL CONT TO MONITOR.
--- NOTE | 2018-07-18 19:56 | NUR ---
PT LEFT UNIT IN NO ACUTE DISTRESS VIA GURTALI ACCOMPANIED BY [facility] TEAM AND PT'S FAMILY. IV TO RFA, PATENT AND INTACT. ALL BELONGINGS LEFT WITH PT. TELE #30 REMOVED AND RETURNED TO RN ANTE PARTUM.
--- NOTE | 2018-07-19 06:29 | NUR ---
PHYSICAL THERAPY DAILY NOTES CO-SIGN All documentation done by the Branch Lending Officer for 07/19/18 has been reviewed. I agree with the documentation. Reviewed/Co-Signed by: Massiel Loo PT Documentation Done by:NEVA WHALEN PTA FOR 07/18/18
== END 2018-07-18 19:55 | DRG 280 ==
LOC: ED 10:54 → IC 13:21 → DU 13:21 → EDBEDREQ 13:31 → DU 14:20 → IC 07-14 04:50 → DU 07-17 16:35
PROVIDERS: Emergency Medicine; Family Medicine; ADMIT Internal Medicine
DX: I48.0 Paroxysmal atrial fibrillation (principal); I21.A1 Myocardial infarction type 2; J96.01 Acute respiratory failure with hypoxia; E44.1 Mild protein-calorie malnutrition; J44.1 Chronic obstructive pulmonary disease with (acute) exacerbation; M95.4 Acquired deformity of chest and rib; E78.5 Hyperlipidemia, unspecified; D45 Polycythemia vera; F17.210 Nicotine dependence, cigarettes, uncomplicated; Z68.22 Body mass index [BMI] 22.0-22.9, adult; Z79.82 Long term (current) use of aspirin
CPT/HCPCS: 36600; 82962; 84439; 97110-GP; 97530-GP; 99406; C9113; J0282; J1650; J1940; J2060; J2270; J2543; J2785; J2920; J3490; J7030; J7060; J7620; J7626; Q0092; Q9967

== ENCOUNTER 2018-09-03 20:12 | Emergency (ER) | payer OTHER ==
[~2018-09-03] VITALS: Ht 175.3 cm; Wt 72.6 kg
[~2018-09-03 20:12] MED LIST: COR200 PO; ELIQUIS5 MG PO; FER300 PO; HYD500; IPRATROPIUM BROM3 M2 INH; LIPI20 PO; METOPROLOL TART25 M1 PO; NIT0.4 SL; SIMVASTATIN10 M1; SOL40I IV
[2018-09-03 20:24] VITALS: Ht 175.3 cm; Wt 72.6 kg
[2018-09-03 21:32] LABS: CALCIUM 8.3 mg/dL (8.5-10.1); CARBON DIOXIDE 25.7 mmol/L (21-32); CHLORIDE SERUM 108 mmol/L (98-107); CREATININE SERUM 1.5 mg/dL (0.7-1.3); GLUCOSE SERUM 157 mg/dL (74-106); POTASSIUM SERUM 5.3 mmol/L (3.5-5.1); SODIUM SERUM 140 mmol/L (136-145)
[2018-09-03 21:36] LABS: ALKALINE PHOSPHATASE 52 U/L (46-116); ALT/SGPT 10 U/L (16-63); AST/SGOT 4 U/L (15-37); BILIRUBIN TOTAL 0.15 mg/dL (0.20-1.00); LIPASE 75 IU/L (73-393)
[2018-09-03 21:37] LABS: ALBUMIN 2.8 g/dL (3.4-5.0); TOTAL PROTEIN, SERUM 5.1 g/dL (6.4-8.2)
[2018-09-03 21:39] LABS: PLATELET COUNT 1353 x10^3mcL (130-400); RED CELL DISTRIBUTION WIDTH 30.5 % (11.5-14.5)
[2018-09-03 22:01] LABS: BAND NEUTROPHIL 2 % (0-10); MONOCYTE 23 % (0-7); SEGMENTED NEUTROPHILS 62 % (37-75)
[2018-09-03 22:04] LABS: PLATELET MORPHOLOGY PLATELETS INCREASED; ovalocyte/elliptocyte 1+; rbc morphology (normal/abnorm) ABNORMAL (NORMAL); tear drop cell (dacryocyte) 1+
[2018-09-03 23:01] VITALS: BP 80/50
== END 2018-09-03 23:01 | disposition short-term general hospital (02) ==
LOC: ED 20:12
PROVIDERS: Emergency Medicine
DX: K66.1 Hemoperitoneum (principal); R58 Hemorrhage, not elsewhere classified; E78.00 Pure hypercholesterolemia, unspecified; D75.1 Secondary polycythemia; I48.91 Unspecified atrial fibrillation
CPT/HCPCS: 85060; J2270; J2405; J7030

== ENCOUNTER 2019-01-26 22:43 | Emergency (ER) | payer OTHER ==
[~2019-01-26] VITALS: Ht 188 cm; Wt 75.7 kg
[2019-01-26 22:57] VITALS: Ht 188 cm; Wt 75.7 kg
[2019-01-27 00:18] VITALS: BP 109/55
== END 2019-01-27 00:18 | disposition home or self-care (01) ==
LOC: ED 22:43
DX: H95.2 Intraoperative hemorrhage and hematoma of ear and mastoid process complicating a procedure (principal); E78.00 Pure hypercholesterolemia, unspecified; I48.91 Unspecified atrial fibrillation; Y92.89 Other specified places as the place of occurrence of the external cause